=== PATIENT | male | born 1980 | race Caucasian/White ===

== ENCOUNTER 2022-08-27 03:53 | Emergency (ER) | payer OTHER ==
[~2022-08-27] VITALS: Ht 175.3 cm; Wt 90.7 kg
[2022-08-27 04:01] VITALS: BP_SYST 123
[2022-08-27] MEDS ORDERED: OMEPRAZOLE Non-Formulary 20 MG CAPSULE.DR PO ONE (04:30)
[2022-08-27 04:51] VITALS: BP_SYST 123
== END 2022-08-27 04:45 ==
LOC: SED 03:53
DX: Z02.89 Encounter for other administrative examinations (principal); Z79.899 Other long term (current) drug therapy
CPT/HCPCS: 99283